=== PATIENT | female | born 1950 | race Caucasian/White ===

== ENCOUNTER → 2016-11-13 | Outpatient (CLI) | payer MEDICARE, BC ==
[~2016-11-13] MED LIST: AMITRIPTYLINE H10 M1 PO; FLAGYL 250250 MG/TAB PO; FLONASE NASAL S16 GM NS; HCTZ 25MG TAB25 MG PO; HRT PATCH; LEVAQUIN 5500 MG/TA1 PO; MICRO-K 1010 MEQ PO; SINGULAIR 110 MG/TAB PO; TOPROL XL 50MG50 MG PO; VENTOLIN0.09 MG IH
== END ==
LOC: MC.RAD 10:38
DX: Z12.31 Encounter for screening mammogram for malignant neoplasm of breast (principal)

== ENCOUNTER → 2018-03-26 | Outpatient (CLI) | payer MEDICARE, BC | LOC: MC.RAD 09:48 | DX: Z12.31 Encounter for screening mammogram for malignant neoplasm of breast (principal) ==

== ENCOUNTER 2019-03-17 08:21 | Outpatient (CLI) | payer MEDICARE, BC ==
[~2019-03-17] VITALS: Ht 175.3 cm; Wt 88.4 kg
[~2019-03-17 08:21] MED LIST changes: -FLONASE NASAL S16 GM NS; +FLONASEALLERGY NS
[2019-03-17] MEDS ORDERED: CATAPRES 0.1MG0.1 MG PO (09:05)
[2019-03-17] MEDS ORDERED: ESTRACE0.5 MG PO (09:06)
[2019-03-17] MEDS ORDERED: EPA FISH OIL1 SGL PO (09:07)
[2019-03-17] MEDS ORDERED: PROVERA 2.5MG2.5 MG PO (09:09)
[2019-03-17] MEDS ORDERED: ALEVE 220MG220 MG PO (09:12)
[2019-03-17] MEDS ORDERED: NATURAL POTASS595 MG (09:13)
[2019-03-17 09:14] LABS: HEMATOCRIT 42.3 % (37.0-47.0); HEMOGLOBIN 14.3 g/dl (12.5-16.0); MEAN CELL VOLUME 96 fl (80.0-100.0); MEAN CORPUSCULAR HEMOGLOBIN 33 pg (27.0-31.0); MEAN CORPUSCULAR HGB CONC 34 g/dl (33.0-37.0); MEAN PLATELET VOLUME 10.4 fl (7.4-10.4); PLATELET COUNT 203 K/mm3 (130-400); PROTHROMBIN TIME 11.6 SECONDS (9.7-12.8); REDCELL DISTRIBUTION WIDTH-CV 12.4 % (11.5-14.5)
[2019-03-17] MEDS ORDERED: VISINE A.C. 0.015 ML (09:15)
[2019-03-17 09:22] LABS: CALCIUM 9.8 mg/dL (8.4-10.2); CREATININE, serum 0.79 (0.52-1.25); POTASSIUM 3.6 mmol/L (3.4-5.0)
[2019-03-17] MEDS ORDERED: CLEOCIN HCL300 MG PO (10:35)
[2019-03-17 10:48] VITALS: BP 135/75; PULSE 78
[2019-03-17 11:00] VITALS: BP 129/77; PULSE 74
[2019-03-17 11:15] VITALS: BP 131/84; PULSE 72
[2019-03-17 11:30] VITALS: BP 140/72; PULSE 72
[2019-03-17 11:45] VITALS: BP 139/82; PULSE 77
--- NOTE | 2019-03-17 12:00 | NUR ---
Discharge instructions reviewed with pt/friend. Pt/friend voice understanding. Pt up and ambulating with no complications. Pt denies pain. Pt's gag reflux intact and tolerating intake with no N/V. Pt was discharged via w/c to the care of friend in private vehicle with discharge instructions and [employer]al LINQ box in hand.
== END 2019-03-17 12:30 | disposition home or self-care (01) ==
LOC: EU 08:21 → EUO 08:21 → COL.RAD 08:30 → EUO 12:30
PROVIDERS: Internal Medicine Cardiovascular Disease
DX: G45.9 Transient cerebral ischemic attack, unspecified (principal)
CPT/HCPCS: C1764; J2250; J2704

== ENCOUNTER → 2020-12-01 | Outpatient (CLI) | payer MEDICARE, BC ==
[~2020-12-01] MED LIST changes: +ALEVE 220MG220 MG PO; +CATAPRES 0.1MG0.1 MG PO; +CLEOCIN HCL300 MG PO; +EPA FISH OIL1 SGL PO; +ESTRACE0.5 MG PO; +NATURAL POTASS595 MG; +PROVERA 2.5MG2.5 MG PO; +VISINE A.C. 0.015 ML
== END ==
LOC: COL.RAD 07:34
DX: M46.1 Sacroiliitis, not elsewhere classified (principal)
CPT/HCPCS: G0260; J3301

== ENCOUNTER 2021-12-19 09:01 | Day surgery (SDC) | payer MEDICARE, BC ==
[~2021-12-19] VITALS: Ht 175.3 cm; Wt 85.3 kg
[~2021-12-19 09:01] MED LIST changes: -NATURAL POTASS595 MG; +NATURAL POTASS595 MG PO; -VISINE A.C. 0.015 ML; +VISINE A.C. 0.015 ML OP
[2021-12-19 09:49] VITALS: BP 136/94; PULSE 83; TEMP 97.8
[2021-12-19] MEDS ORDERED: XARELTO20 MG PO (09:53)
[2021-12-19] MEDS ORDERED: NEURONTIN100 MG/CAP PO (09:54)
[2021-12-19] MEDS ORDERED: COZAAR 25MG25 MG/TAB PO (09:55)
[2021-12-19] MEDS ORDERED: CYMBALTA 30MG30 MG PO (09:55)
[2021-12-19] MEDS ORDERED: TAZTIA120 PO (09:56)
[2021-12-19] MEDS ORDERED: TYLENOL 500MG500 MG PO (09:57)
[2021-12-19] MEDS ORDERED: CETRA VITE SENI1 TAB PO (09:59)
[2021-12-19 11:15] VITALS: BP 132/80; PULSE 82; TEMP 97.3
[2021-12-19 11:30] VITALS: BP 148/97; PULSE 73
--- NOTE | 2021-12-19 11:31 | NUR ---
1115 - PT arrives from procedure and ambulates from cart to chair w/ Liza RN. Monitors applied and VSS. PT provided warm blankets and legs elevated by chair. Verbal room report obtained. PT denies pain/nausea and was provided snack/drink per request. Call mohr within reach and non-slip socks remain on. Will monitor per intervals. PT A&Ox3.
[2021-12-19 11:45] VITALS: BP 128/82; PULSE 61
--- NOTE | 2021-12-19 11:53 | NUR ---
1130 - VSS. PT continues to snack and drink; is tolerating well. Call mohr remains within reach if needed. Will monitor per intervals. 1140 - DR is speaking w/ PT. 1145 - VSS. PT expressed desire to be discharged. Call mohr within reach if needed. PT requested RN contact ride home.
[2021-12-19 12:00] VITALS: BP 140/76; PULSE 66
--- NOTE | 2021-12-19 12:06 | NUR ---
1200 - VSS. IV and monitors discontinued. Catheter tip intact and pressure bandage applied. NO redness or swelling noted. PT then refused RN assistance changing into personal clothes; call mohr remains within reach and non-slip socks are on.
--- NOTE | 2021-12-19 12:14 | NUR ---
1210 - DC instructions and educational material reviewed w/ PT who verbalized understanding and signed the related paperwork. Questions answered to PT satisfaction. PT awaiting ride. Call mohr within reach if needed.
--- NOTE | 2021-12-19 12:21 | NUR ---
1220 - PT dismissed from endo via wheelchair to the PT entrence by Guillermina MELCHOR. PT has DC packet and personal belongings and was transferred into the care of her sister, who is driving private car.
== END 2021-12-19 12:25 | disposition home or self-care (01) ==
LOC: SDCO 09:01
DX: D12.0 Benign neoplasm of cecum (principal); D12.4 Benign neoplasm of descending colon; K63.5 Polyp of colon; K64.0 First degree hemorrhoids; K64.4 Residual hemorrhoidal skin tags; Z80.0 Family history of malignant neoplasm of digestive organs; I10 Essential (primary) hypertension; Z79.899 Other long term (current) drug therapy; Z87.891 Personal history of nicotine dependence; Z79.01 Long term (current) use of anticoagulants; Z90.89 Acquired absence of other organs
CPT/HCPCS: J2704; J7120

== ENCOUNTER 2023-06-23 10:33 | Inpatient (IN) | payer MEDICARE, BC ==
[~2023-06-23] VITALS: Ht 175.3 cm; Wt 86.3 kg
[2023-06-23] VITALS (7 sets, daily range): BP systolic 111–142; BP diastolic 56–82; PULSE 63–68; TEMP 97.3–99
[~2023-06-23 10:33] MED LIST changes: +CETRA VITE SENI1 TAB PO; +COZAAR 25MG25 MG/TAB PO; +CYMBALTA 30MG30 MG PO; +NEURONTIN100 MG/CAP PO; +TAZTIA180 PO; +TYLENOL 500MG500 MG PO; +XARELTO20 MG PO
[2023-06-23] MEDS ORDERED: NEURONTIN100 MG/CAP PO (11:00)
[2023-06-23] MEDS ORDERED: AMITRIPTYLINE H10 M1 PO (11:00)
[2023-06-23 11:02] LABS: BASO % 0.3 % (0.0-2.0); EOS # 0.1 K/mm3 (0.0-0.7); EOS % 1.1 % (0.0-4.0); GRAN # 7.9 K/mm3 (1.4-6.5); GRAN % 74.3 % (42.2-75.2); HEMOGLOBIN 14.2 g/dl (12.5-16.0); LYMPH # 1.5 K/mm3 (1.2-3.4); MEAN CELL VOLUME 95 fl (80.0-100.0); MEAN CORPUSCULAR HEMOGLOBIN 33 pg (27-31); MEAN CORPUSCULAR HGB CONC 35 g/dl (33.0-37.0); MONO % 9.3 % (1.7-9.3); PLATELET COUNT 292 K/mm3 (130-400); RED BLOOD COUNT 4.32 M/mm3 (4.10-5.30); REDCELL DISTRIBUTION WIDTH-CV 12.5 % (11.5-14.5)
[2023-06-23 11:03] LABS: INR 1.3 (0.8-3.0); PROTHROMBIN TIME 14.1 SECONDS (9.7-12.8)
[2023-06-23] MEDS ORDERED: NS 1,000 ML IV ONE (11:15)
[2023-06-23 11:19] LABS: COLLECTION METHOD CLEAN CATCH
[2023-06-23 11:25] LABS: URINE APPEARANCE TURBID (CLEAR/HAZY); URINE BLOOD 2+ (NEGATIVE); URINE COLOR Dark Yellow (YELLOW); URINE GLUCOSE NEGATIVE (NEGATIVE); URINE KETONE TRACE (NEGATIVE); URINE NITRATE POSITIVE (NEGATIVE); URINE PROTEIN(semi-quant) 2+ (NEGATIVE)
[2023-06-23 11:28] LABS: ALANINE AMINOTRANSFERASE 61 U/L (0-55); ALBUMIN 2.9 g/dL (3.4-4.8); ALKALINE PHOSPHATASE 69 U/L (40-150); ANION GAP 17 mmol/L (7-16); AST,SGOT 71 U/L (5-34); BILIRUBIN,TOTAL 0.6 mg/dL (0.2-1.2); BLOOD UREA NITROGEN 30 mg/dL (10-20); CALCIUM 11.2 mg/dL (8.4-10.2); CHLORIDE 99 mEq/L (98-107); CREATINE KINASE 105 U/L (29-168); CREATININE, serum 1.15 mg/dL (0.57-1.11); GLUCOSE 113 mg/dL (70-99); LIPASE 52 U/L (8-78); POTASSIUM 3.2 mEq/L (3.5-4.5); SODIUM 136 mEq/L (136-145)
[2023-06-23 11:29] LABS: C-REACTIVE PROTEIN 33.71 mg/dL (0.00-0.50)
[2023-06-23 11:30] LABS: TROPONIN-I < 0.010 ng/mL (0.00-0.033)
[2023-06-23 11:45] LABS: SQUAMOUS EPITHELIAL 0-2 /hpf (0-10); URINE RBC 0-2 /hpf (0-2); URINE WBC >50 /hpf (0-2)
[2023-06-23 11:46] LABS: URINE BACTERIA MANY /hpf (NONE SEEN)
[2023-06-23] MEDS ORDERED: Iohexol 300 - 100 ML VIAL IV ONE (12:03)
[2023-06-23] MEDS ORDERED: NS 100 ML IV SCH (12:04)
[2023-06-23] MEDS ORDERED: dexAMETHasone 10 MG/ML VIAL ONE (13:09)
[2023-06-23] MEDS ORDERED: fentaNYL 50 MCG/ML 2 ML VIAL ONE (13:09)
[2023-06-23] MEDS ORDERED: NS 10 ML IV ONE (13:09)
[2023-06-23] MEDS ORDERED: Ondansetron 4 MG/2 ML VIAL ONE (13:09)
[2023-06-23] MEDS ORDERED: droPERidol 2.5 MG/ML 2 ML VIAL IV PRN (13:45)
[2023-06-23] MEDS ORDERED: LR 1,000 ML IV SCH (13:45)
[2023-06-23] MEDS ORDERED: hydrALAZINE 20 MG/ML 1 ML VIAL IV PRN (13:45)
[2023-06-23] MEDS ORDERED: fentaNYL 50 MCG/ML 1 ML SYRINGE/VIAL [PACU/SDC ONLY] IV PRN (13:45)
[2023-06-23] MEDS ORDERED: HYDROmorphone 1 MG/1 ML SYRINGE [PACU/SDC ONLY] IV PRN ×2 (13:45)
[2023-06-23] MEDS ORDERED: Ondansetron 4 MG/2 ML VIAL IV PRN (13:45)
[2023-06-23] MEDS ORDERED: Meperidine 50 MG/ML 1 ML VIAL IV PRN (13:45)
[2023-06-23] MEDS ORDERED: Iohexol 300 - 10 ML VIAL URETER-R ONE (14:29)
[2023-06-23] MEDS ORDERED: Lidocaine 2% (20 MG/ML) 20 ML UROJET UR ONE (14:33)
--- NOTE | 2023-06-23 15:15 | NUR ---
Patient to room 357 from the OR. Alert, but drowsy. VSS. Post op VS monitored. IV CDI, fluids by gravity. Denies pain and discomfort. Nurse oriented the patient to location, call light and room. Family at the bedside. No further needs expressed. Call light within reach
[2023-06-23] MEDS ORDERED: NS 1,000 ML IV SCH (15:30)
[2023-06-23] MEDS ORDERED: *Potassium Replacement Protocol MC SCH (15:45)
--- NOTE | 2023-06-23 18:38 | NUR ---
Patient laying in bed, A&Ox4. VSS. IV CDI, fluids infusing. Denies pain and discomfort. Family at the bedside. No further needs expressed. Call light within reach
--- NOTE | 2023-06-23 19:15 | NUR ---
PATIENT RESTING IN BED WATCHING TV WITH NO FAMILY PRESENT WITH NO ACUTE DISTRESS NOTED. PATIENT ON ROOM AIR. NS INFUSING INTO RIGHT HAND WITH NO COMPLICATIONS NOTED. PATIENT DENIES ANY NEEDS AT THIS TIME. PATIENT CARE ASSUMED FROM CALE. BED IN LOW POSITION WITH WHEELS LOCKED WITH RAILS UP X2 AND CALL LIGHT WITHIN REACH.
--- NOTE | 2023-06-23 19:57 | NUR ---
PATIENT RESTING IN BED WATCHING TV WITH NO FAMILY PRESENT WITH NO ACUTE DISTRESS NOTED. PATIENT ON ROOM AIR. NS INFUSING INTO RIGHT HAND WITH SWELLING NOTED TO FOREARM. NS STOPED. INT REMOVED FROM RIGHT HAND WITH CATHETER INTACT. PRESSURE DRESSING APPLIED. PATIENT VERBALIZED UNDERSTANDING THAT NEW IV WOULD BE STARTED. ASSESSMENT COMPLETED AT THIS TIME. PATIENT TOLERATED WELL. PATIENT C/O PAIN. PATIENT STATED PAIN LEVEL WAS 6 ON SCALE OF 0 TO 10. PATIENT VERBALIZED THAT PAIN MEDICATION WOULD BE GIVEN ONCE HOSPITALIST WAS CALLED AND MEDICATION COULD BE ORDERED. PATIENT DENIES ANY OTHER NEEDS AT THIS TIME. BED IN LOW POSITION WITH WHEELS LOCKED WITH RAILS UP X2 AND CALL LIGHT WITHIN REACH.
--- NOTE | 2023-06-23 20:19 | NUR ---
HOPITALIST SOHAIL MESSINA CALLED FOR PATIENT C/O PAIN. NEW ORDERS RECIEVED.
[2023-06-23] MEDS ORDERED: Acetaminophen 325 MG TAB PO PRN (20:30)
[2023-06-23] MEDS ORDERED: fentaNYL 50 MCG/ML 2 ML VIAL IV PRN (20:30)
--- NOTE | 2023-06-23 21:16 | NUR ---
PATIENT RESTING IN BED WATCHING TV WITH NO FAMILY PRESENT WITH NO ACUTE DISTRESS NOTED. PATIENT ON ROOM AIR. NEW INT TRIED TO BE OBTAINED IN LEFT HAND WITH NO SUCCESS. PATIET TOLERATED WELL. PATIENT VERBALIZED UNDERSTANDING THAT ANOTHER NRUSE WOULD TRY. MEDICATION ADMINISTRATION COMPLETED AT THIS TIME. PATIENT TOLERATED WELL. PATIENT QUESTION ABOUT HOME NIGHT TIME MEDICATIONS. PATIENT VERBALIZED UNDERSTANDING THAT PRIMARY NURSE WOULD CALL HOSPITALIST ABOUT MEDICATIONS. PATIENT DENIES ANY OTHER NEEDS. BED IN LOW POSITION WITH WHEELS LOCKED WITH RAILS UP X2 AND CALL LIGHT WITHIN REACH.
--- NOTE | 2023-06-23 22:14 | NUR ---
HOSPITALIST SOHAIL MESSINA CALLED FOR PATIENT REQUEST FOR ELAVIL AND GABAPENTIN HOME NIGHT TIME MEDICATIONS. ORDERS RECIEVED FOR BOTH.
[2023-06-23] MEDS ORDERED: Amitriptyline 10 MG TAB PO SCH (22:16)
[2023-06-23] MEDS ORDERED: Gabapentin 100 MG CAP PO SCH (22:16)
[2023-06-24] VITALS (7 sets, daily range): BP systolic 112–154; BP diastolic 70–83; PULSE 65–78; TEMP 97.9–98.1
[2023-06-24 07:29] LABS: ALBUMIN 2.5 g/dL (3.4-4.8); CALCIUM 9.4 mg/dL (8.4-10.2); CREATININE, serum 0.82 mg/dL (0.57-1.11); PHOSPHOROUS 3.9 mg/dL (2.3-4.7); POTASSIUM 4.7 mEq/L (3.5-4.5)
[2023-06-24 08:46] LABS: BASO % 0.2 % (0.0-2.0); EOS % 0.2 % (0.0-4.0); GRAN # 7.5 K/mm3 (1.4-6.5); GRAN % 87.4 % (42.2-75.2); HEMOGLOBIN 13.1 g/dl (12.5-16.0); LYMPH # 0.8 K/mm3 (1.2-3.4); LYMPH % 9.5 % (20.0-51.0); MEAN CELL VOLUME 95 fl (80.0-100.0); MEAN CORPUSCULAR HEMOGLOBIN 34 pg (27-31); MEAN CORPUSCULAR HGB CONC 36 g/dl (33.0-37.0); MEAN PLATELET VOLUME 11.3 fl (7.4-10.4); MONO # 0.1 K/mm3 (0.1-0.6); MONO % 1.6 % (1.7-9.3); RED BLOOD COUNT 3.89 M/mm3 (4.10-5.30); REDCELL DISTRIBUTION WIDTH-CV 12.7 % (11.5-14.5)
[2023-06-24] MEDS ORDERED: Montelukast 10 MG TAB PO SCH (09:00)
[2023-06-24] MEDS ORDERED: levoFLOXacin 750 MG TAB PO SCH (09:00)
[2023-06-24] MEDS ORDERED: Gabapentin 100 MG CAP PO SCH (09:00)
[2023-06-24] MEDS ORDERED: DULoxetine 30 MG CAP PO SCH (09:00)
[2023-06-24 09:11] LABS: HEMATOCRIT 36.9 % (37.0-47.0)
[2023-06-24 09:12] LABS: PLATELET COUNT 262 K/mm3 (130-400)
--- NOTE | 2023-06-24 09:39 | NUR ---
Pt is laying in bed. A&Ox4. VSS. S1S2. Clear lung sounds, diminished in bases. ABD is rounded, soft, non-tender with audible bowel sounds. Palpable pulses in all extremities with normal strength. Pt denies, headachi, n/v, dizziness. Pt reports pain 2/10 in right flank and pelvic area - Pt thinks from stones moving. Pt says it is tolerable at this moment, no interventions needed. Pt is on tele. IV in L wrist has NS at 75 cc/hr, no issues. No further needs at this time. Call light in reach.
--- NOTE | 2023-06-24 10:02 | NUR ---
Initial visit; Patient thanked Cartoon Artist for looking in on her and offering a prayer and God's blessings for a rapid and thorough healing. Patient very pleasant.
[2023-06-24] MEDS ORDERED: LEVAQUIN 750MG750 M1 PO (12:08)
--- NOTE | 2023-06-24 12:27 | NUR ---
Received D/C orders. D/C Pt's IV from Bogdan hernández. Took Pt off tele. Told Pt they could get dressed into their own clothes. Pt called sisters - will be marisela in 1-2 hrs to pick her up. No further needs at this time. Call light in reach.
--- NOTE | 2023-06-24 13:11 | NUR ---
Pt educated on discharge information and instructions. Pt questions answered. Waiting for ride to come. No further needs.
--- NOTE | 2023-06-24 13:37 | NUR ---
Sash Sticker met with patient to discuss discharge planning. Patient lives alone in [place] and sees Dr. Ferreira for primary care. Patient gets her medications from [facility] with no difficulties and does not use any DME. Patient is independent with ADLS, including driving. Patient advised her sister, Karolina (ph#[phone]) lives across the street from her and is her DPOA-HC. Patient plans to return home at time of discharge. Discharge Plan: Home
--- NOTE | 2023-06-24 13:50 | NUR ---
Sister arrived to take Pt home. Pt transferred to car via . JOHANNE Oneal accompanied Pt to car. No further needs.
== END 2023-06-24 13:51 | disposition home or self-care (01) | DRG 853 ==
LOC: COL.ER 10:33 → MEDICAL 12:28
PROVIDERS: Emergency Medicine; Urology; ADMIT Internal Medicine
PROC: 0T768DZ Dilation of Right Ureter with Intraluminal Device, Via Natural or Artificial Opening Endoscopic (ICD-10-PCS; principal; 2023-06-23 14:30)
PROC: BT1D1ZZ Fluoroscopy of Right Kidney, Ureter and Bladder using Low Osmolar Contrast (ICD-10-PCS; 2023-06-23 14:30)
DX: A41.9 Sepsis, unspecified organism (principal); J96.01 Acute respiratory failure with hypoxia; N20.1 Calculus of ureter; N39.0 Urinary tract infection, site not specified; J98.11 Atelectasis; I48.0 Paroxysmal atrial fibrillation; I10 Essential (primary) hypertension; I95.9 Hypotension, unspecified; J45.909 Unspecified asthma, uncomplicated; B96.20 Unspecified Escherichia coli [E. coli] as the cause of diseases classified elsewhere; F32.A Depression, unspecified; Z79.01 Long term (current) use of anticoagulants; Z90.49 Acquired absence of other specified parts of digestive tract; Z88.1 Allergy status to other antibiotic agents; Z88.5 Allergy status to narcotic agent; Z88.8 Allergy status to other drugs, medicaments and biological substances; Z79.899 Other long term (current) drug therapy; Z87.442 Personal history of urinary calculi; Z86.73 Personal history of transient ischemic attack (TIA), and cerebral infarction without residual deficits
CPT/HCPCS: C1769; C2617; J0690; J1100; J1956; J2405; J2704; J3010; J7030; Q9967